=== PATIENT | female | born 1965 | race African-American/Black ===

== ENCOUNTER 2022-09-19 08:59 | Emergency (ER) | payer OTHER ==
[~2022-09-19] VITALS: Ht 152.4 cm; Wt 90.7 kg
== END 2022-09-19 18:46 | disposition home or self-care (01) ==
LOC: ER 08:59
DX: E11.65 Type 2 diabetes mellitus with hyperglycemia (principal); L89.899 Pressure ulcer of other site, unspecified stage

== ENCOUNTER 2022-12-20 21:22 | Emergency (ER) | payer OTHER ==
[~2022-12-20] VITALS: Ht 152.4 cm; Wt 80.7 kg
[2022-12-20] MEDS ORDERED: TRIJARDY XR 5-1 EACH PO (21:56)
[2022-12-20] MEDS ORDERED: LIPITOR20 MG PO (21:57)
[2022-12-20] MEDS ORDERED: LOSARTAN POTASS50 MG PO (21:57)
[2022-12-21] MEDS ORDERED: BACTRIM DS TAB1 EACH PO (00:07)
== END 2022-12-21 00:18 | disposition home or self-care (01) ==
LOC: ER 21:22
PROVIDERS: General Practice
DX: M79.671 Pain in right foot (principal); L97.519 Non-pressure chronic ulcer of other part of right foot with unspecified severity; I10 Essential (primary) hypertension; E11.9 Type 2 diabetes mellitus without complications; Z79.84 Long term (current) use of oral hypoglycemic drugs

== ENCOUNTER 2022-12-21 11:18 | Outpatient (CLI) | payer OTHER ==
[~2022-12-21 11:18] MED LIST: BACTRIM DS TAB1 EACH PO; LIPITOR20 MG PO; LOSARTAN POTASS50 MG PO; TRIJARDY XR 5-1 EACH PO
== END 2022-12-21 11:27 | disposition home or self-care (01) ==
LOC: RAD 11:18
PROVIDERS: ATTEND Specialist
DX: M86.8X7 Other osteomyelitis, ankle and foot (principal); E11.69 Type 2 diabetes mellitus with other specified complication

== ENCOUNTER 2022-12-28 13:55 | Inpatient (IN) | payer OTHER ==
[~2022-12-28] VITALS: Ht 152.4 cm; Wt 80.7 kg
[2022-12-28 16:12] LABS: PH,URINE 5.5 (5.0-8.0); URINE APPEARANCE Clear; URINE BILIRRUBIN Negative (NEGATIVE); URINE BLOOD Negative; URINE COLOR Yellow; URINE LEUKOCYTE Negative; URINE NITRATE Negative; URINE PROTEIN Trace (NEGATIVE)
[2022-12-28 16:13] LABS: URINE BACTERIA 431.5 uL (0.0-1933); URINE EPITHELIAL CELLS 8.2 uL (0.0-38.8); URINE RBC 4.6 uL (0.0-20.8); URINE WBC 28.3 uL (0.0-23.2)
[2022-12-28 16:15] LABS: HEMATOCRIT 32.6 % (36.0-45.00); HEMOGLOBIN 10.2 g/dL (12.0-15.00); MEAN CELL VOLUME 73.8 fL (80.00-100.00); MEAN CORPUSCULAR HEMOGLOBIN 23.1 pg (27.00-32.0); MEAN CORPUSCULAR HGB CONC 31.3 g/dl (32.0-36.0); PLATELET COUNT 452 K/uL (150-450); RED BLOOD COUNT 4.42 M/uL (4.00-6.00); RED CELL DISTRIBUTION WIDTH 15.6 % (11.5-14.5); URINE GLUCOSE >=1000 MG/DL (NEGATIVE)
[2022-12-28 16:19] LABS: ERYTHROCYTE SEDIMENTATION RATE 82 mm/hr
[2022-12-28 16:33] LABS: INR 1.11; PARTIAL THROMBOPLASTIN TIME 36.3 SECONDS (22.0-34.0); PROTHROMBIN TIME 11.6 SECONDS (9.0-11.5)
[2022-12-28 16:40] LABS: ALBUMIN 3.1 gm/dL (3.4-5.0); BILIRUBIN TOTAL 0.53 mg/dL (0.3-1.2); CALCIUM 9.5 mg/dL (8.5-10.1); CREATININE SERUM 1.37 mg/dL (0.55-1.02); GFR 39.88; GLOBULINA 5.3 G/DL (2.4-3.5); POTASSIUM 4.68 mEq/L (3.5-5.1); TOTAL PROTEIN 8.4 gm/dL (6.4-8.2)
[2022-12-28 18:44] LABS: ABG PH 7.471 (7.35-7.45); ABG PO2 85.5 mmHg (80-100); ABG pCO2 35.1 mmHg (35-45); BASE EXCESS 1.8 mmol/l; SaO2 97.2 %; Tco2 26.1 mmol/l
[2022-12-28 18:45] LABS: allen test SATISFACTORY; o2 21 %; puncture site RADIAL LEFT
[2022-12-30 08:13] LABS: CALCIUM 8.1 mg/dL (8.5-10.1); CREATININE SERUM 0.87 mg/dL (0.55-1.02); GFR 67.35; POTASSIUM 4.07 mEq/L (3.5-5.1); TSH 1.69 uIU/mL (0.358-3.74)
[2023-01-01 07:06] LABS: CALCIUM 8.1 mg/dL (8.5-10.1); CREATININE SERUM 0.8 mg/dL (0.55-1.02); GFR 74.2; MAGNESIUM 1.7 mg/dL (1.8-2.4); PHOSPHOROUS 3.1 mg/dL (2.5-4.9); POTASSIUM 4.08 mEq/L (3.5-5.1)
[2023-01-01 07:08] LABS: HEMATOCRIT 26.3 % (36.0-45.00); MEAN CELL VOLUME 72.2 fL (80.00-100.00); MEAN CORPUSCULAR HGB CONC 33.4 g/dl (32.0-36.0); PLATELET COUNT 389 K/uL (150-450); RED BLOOD COUNT 3.64 M/uL (4.00-6.00); RED CELL DISTRIBUTION WIDTH 15.6 % (11.5-14.5)
[2023-01-01 07:12] LABS: HEMOGLOBIN 8.8 g/dL (12.0-15.00); MEAN CORPUSCULAR HEMOGLOBIN 24.1 pg (27.00-32.0)
[2023-01-03 08:39] LABS: HEMATOCRIT 27.9 % (36.0-45.00); MEAN CELL VOLUME 72.8 fL (80.00-100.00); MEAN CORPUSCULAR HEMOGLOBIN 23.5 pg (27.00-32.0); MEAN CORPUSCULAR HGB CONC 32.3 g/dl (32.0-36.0); PLATELET COUNT 499 K/uL (150-450); RED BLOOD COUNT 3.83 M/uL (4.00-6.00); RED CELL DISTRIBUTION WIDTH 15.5 % (11.5-14.5)
[2023-01-03 08:46] LABS: ERYTHROCYTE SEDIMENTATION RATE > 130 mm/hr
[2023-01-03 09:33] LABS: ALBUMIN 2.1 gm/dL (3.4-5.0); BILIRUBIN TOTAL 0.73 mg/dL (0.3-1.2); CALCIUM 8.3 mg/dL (8.5-10.1); CREATININE SERUM 0.7 mg/dL (0.55-1.02); GFR 86.56; GLOBULINA 4.4 G/DL (2.4-3.5); POTASSIUM 4.01 mEq/L (3.5-5.1); TOTAL PROTEIN 6.5 gm/dL (6.4-8.2)
[2023-01-03 09:34] LABS: C-REACTIVE PROTEIN 23.2 MG/DL (0.00-0.29)
[2023-01-06 10:21] LABS: INR 1.23; PROTHROMBIN TIME 12.7 SECONDS (9.0-11.5)
[2023-01-07 14:22] LABS: ABG PH 7.377 (7.35-7.45); ABG PO2 65.9 mmHg (80-100); ABG pCO2 30.3 mmHg (35-45); BASE EXCESS -6.4 mmol/l; BICARBONATE 17.4 mmol/l (23-25); SaO2 91.8 %; Tco2 18.3 mmol/l; o2 44 %
[2023-01-07 14:23] LABS: allen test SATISFACTORY; puncture site RADIAL LEFT
[2023-01-07 15:29] LABS: HEMATOCRIT 25.2 % (36.0-45.00); MEAN CELL VOLUME 71.8 fL (80.00-100.00); MEAN CORPUSCULAR HEMOGLOBIN 24.2 pg (27.00-32.0); PLATELET COUNT 597 K/uL (150-450); RED BLOOD COUNT 3.51 M/uL (4.00-6.00); RED CELL DISTRIBUTION WIDTH 16.2 % (11.5-14.5)
[2023-01-07 15:30] LABS: HEMOGLOBIN 8.5 g/dL (12.0-15.00)
[2023-01-07 15:32] LABS: ALBUMIN 2.1 gm/dL (3.4-5.0); BILIRUBIN TOTAL 0.42 mg/dL (0.3-1.2); CALCIUM 8.1 mg/dL (8.5-10.1); CREATININE SERUM 0.65 mg/dL (0.55-1.02); GFR 94.29; GLOBULINA 4.5 G/DL (2.4-3.5); POTASSIUM 3.83 mEq/L (3.5-5.1); TOTAL PROTEIN 6.6 gm/dL (6.4-8.2)
[2023-01-08 07:14] LABS: MEAN CELL VOLUME 71.4 fL (80.00-100.00); PLATELET COUNT 594 K/uL (150-450); RED BLOOD COUNT 3.15 M/uL (4.00-6.00); RED CELL DISTRIBUTION WIDTH 16.4 % (11.5-14.5)
[2023-01-08 07:23] LABS: HEMATOCRIT 22.5 % (36.0-45.00); MEAN CORPUSCULAR HEMOGLOBIN 24.4 pg (27.00-32.0)
[2023-01-08 07:33] LABS: HEMOGLOBIN 7.7 g/dL (12.0-15.00)
[2023-01-08 08:05] LABS: BILIRUBIN TOTAL 0.32 mg/dL (0.3-1.2); CREATININE SERUM 0.65 mg/dL (0.55-1.02); GFR 94.29; GLOBULINA 4.1 G/DL (2.4-3.5); POTASSIUM 3.61 mEq/L (3.5-5.1); TOTAL PROTEIN 6.1 gm/dL (6.4-8.2)
[2023-01-09 12:50] LABS: FERRITIN 636.7 NG/ML (8-252)
[2023-01-09 16:56] LABS: ABG PO2 77.1 mmHg (80-100); ABG pCO2 42.6 mmHg (35-45); BICARBONATE 27.7 mmol/l (23-25); SaO2 95.8 %; allen test SATISFACTORY; o2 50 %; puncture site RADIAL LEFT
[2023-01-10 08:07] LABS: HEMATOCRIT 32.4 % (36.0-45.00); MEAN CELL VOLUME 74.2 fL (80.00-100.00); MEAN CORPUSCULAR HEMOGLOBIN 25.2 pg (27.00-32.0); MEAN CORPUSCULAR HGB CONC 33.9 g/dl (32.0-36.0); PLATELET COUNT 516 K/uL (150-450); RED BLOOD COUNT 4.36 M/uL (4.00-6.00); RED CELL DISTRIBUTION WIDTH 16.5 % (11.5-14.5)
[2023-01-12 06:50] LABS: HEMATOCRIT 32.7 % (36.0-45.00); HEMOGLOBIN 10.8 g/dL (12.0-15.00); MEAN CELL VOLUME 76.5 fL (80.00-100.00); MEAN CORPUSCULAR HEMOGLOBIN 25.3 pg (27.00-32.0); MEAN CORPUSCULAR HGB CONC 33.1 g/dl (32.0-36.0); PLATELET COUNT 381 K/uL (150-450); RED BLOOD COUNT 4.27 M/uL (4.00-6.00); RED CELL DISTRIBUTION WIDTH 16.3 % (11.5-14.5)
[2023-01-12 07:28] LABS: ALBUMIN 2.2 gm/dL (3.4-5.0); BILIRUBIN TOTAL 0.41 mg/dL (0.3-1.2); CALCIUM 8.8 mg/dL (8.5-10.1); CREATININE SERUM 0.49 mg/dL (0.55-1.02); GFR 130.64; POTASSIUM 3.92 mEq/L (3.5-5.1); TOTAL PROTEIN 6.2 gm/dL (6.4-8.2)
[2023-01-12 07:35] LABS: ERYTHROCYTE SEDIMENTATION RATE > 130 mm/hr
[2023-01-12 07:37] LABS: C-REACTIVE PROTEIN 8.85 MG/DL (0.00-0.29)
[2023-01-12 23:26] LABS: ob NEGATIVE (NEGATIVE)
[2023-01-15 07:51] LABS: HEMATOCRIT 29.1 % (36.0-45.00); HEMOGLOBIN 9.7 g/dL (12.0-15.00); MEAN CELL VOLUME 75.2 fL (80.00-100.00); MEAN CORPUSCULAR HEMOGLOBIN 25.1 pg (27.00-32.0); MEAN CORPUSCULAR HGB CONC 33.4 g/dl (32.0-36.0); PLATELET COUNT 280 K/uL (150-450); RED BLOOD COUNT 3.87 M/uL (4.00-6.00)
[2023-01-15 07:57] LABS: ERYTHROCYTE SEDIMENTATION RATE 117 mm/hr
[2023-01-15 08:15] LABS: ALBUMIN 2.3 gm/dL (3.4-5.0); BILIRUBIN TOTAL 0.4 mg/dL (0.3-1.2); CALCIUM 8.5 mg/dL (8.5-10.1); CREATININE SERUM 0.62 mg/dL (0.55-1.02); GFR 99.57; GLOBULINA 3.7 G/DL (2.4-3.5); POTASSIUM 4.13 mEq/L (3.5-5.1)
[2023-01-15 08:16] LABS: C-REACTIVE PROTEIN 6.81 MG/DL (0.00-0.29)
[2023-01-19 06:55] LABS: HEMATOCRIT 29.1 % (36.0-45.00); HEMOGLOBIN 9.4 g/dL (12.0-15.00); MEAN CELL VOLUME 76.5 fL (80.00-100.00); MEAN CORPUSCULAR HEMOGLOBIN 24.8 pg (27.00-32.0); MEAN CORPUSCULAR HGB CONC 32.5 g/dl (32.0-36.0); PLATELET COUNT 204 K/uL (150-450); RED CELL DISTRIBUTION WIDTH 16.5 % (11.5-14.5)
[2023-01-19 07:17] LABS: ALBUMIN 2.4 gm/dL (3.4-5.0); BILIRUBIN TOTAL 0.45 mg/dL (0.3-1.2); CALCIUM 8.5 mg/dL (8.5-10.1); CREATININE SERUM 0.58 mg/dL (0.55-1.02); GFR 107.54; GLOBULINA 3.6 G/DL (2.4-3.5); POTASSIUM 4.17 mEq/L (3.5-5.1)
[2023-01-19 07:37] LABS: ERYTHROCYTE SEDIMENTATION RATE > 130 mm/hr
[2023-01-23 08:09] LABS: HEMATOCRIT 29.2 % (36.0-45.00); HEMOGLOBIN 9.6 g/dL (12.0-15.00); MEAN CELL VOLUME 76.6 fL (80.00-100.00); MEAN CORPUSCULAR HEMOGLOBIN 25.1 pg (27.00-32.0); MEAN CORPUSCULAR HGB CONC 32.8 g/dl (32.0-36.0); PLATELET COUNT 209 K/uL (150-450); RED BLOOD COUNT 3.82 M/uL (4.00-6.00); RED CELL DISTRIBUTION WIDTH 16.8 % (11.5-14.5)
[2023-01-23 08:43] LABS: CALCIUM 8.7 mg/dL (8.5-10.1); CREATININE SERUM 0.74 mg/dL (0.55-1.02); GFR 81.18; PHOSPHOROUS 3.5 mg/dL (2.5-4.9); POTASSIUM 4.39 mEq/L (3.5-5.1)
== END 2023-01-24 12:23 | disposition designated cancer center or children's hospital (05) | DRG 854 ==
LOC: ER 13:55 → MEDJ 19:19 → MEDI 19:19 → MEDJ 01-03 15:04
PROVIDERS: General Practice; Internal Medicine; Internal Medicine Endocrinology, Diabetes & Metabolism; Internal Medicine Geriatric Medicine; Internal Medicine Hematology & Oncology; Specialist; ADMIT Internal Medicine; ATTEND Internal Medicine
PROC: BQ3LZZZ Magnetic Resonance Imaging (MRI) of Right Foot (ICD-10-PCS; 2022-12-29)
PROC: 8E0ZXY6 Isolation (ICD-10-PCS; 2022-12-30)
PROC: B24BYZZ Ultrasonography of Heart with Aorta using Other Contrast (ICD-10-PCS; 2023-01-02)
PROC: B315ZZZ Fluoroscopy of Bilateral Common Carotid Arteries (ICD-10-PCS; 2023-01-02)
PROC: 4A02XM4 Measurement of Cardiac Total Activity, External Approach (ICD-10-PCS; 2023-01-03)
PROC: 3E073KZ Introduction of Other Diagnostic Substance into Coronary Artery, Percutaneous Approach (ICD-10-PCS; 2023-01-03)
PROC: 0Y6V0Z0 Detachment at Right 4th Toe, Complete, Open Approach (ICD-10-PCS; principal; 2023-01-06 09:00)
PROC: 4A12X4Z Monitoring of Cardiac Electrical Activity, External Approach (ICD-10-PCS; 2023-01-07)
PROC: BW24YZZ Computerized Tomography (CT Scan) of Chest and Abdomen using Other Contrast (ICD-10-PCS; 2023-01-07)
PROC: BW24YZZ Computerized Tomography (CT Scan) of Chest and Abdomen using Other Contrast (ICD-10-PCS; 2023-01-07)
PROC: 02HV33Z Insertion of Infusion Device into Superior Vena Cava, Percutaneous Approach (ICD-10-PCS; 2023-01-09)
PROC: 30243N1 Transfusion of Nonautologous Red Blood Cells into Central Vein, Percutaneous Approach (ICD-10-PCS; 2023-01-10)
DX: A41.9 Sepsis, unspecified organism (principal); E11.52 Type 2 diabetes mellitus with diabetic peripheral angiopathy with gangrene; N17.9 Acute kidney failure, unspecified; I96 Gangrene, not elsewhere classified; M86.9 Osteomyelitis, unspecified; E11.621 Type 2 diabetes mellitus with foot ulcer; Z79.4 Long term (current) use of insulin; L97.519 Non-pressure chronic ulcer of other part of right foot with unspecified severity; I99.8 Other disorder of circulatory system; D64.9 Anemia, unspecified; E11.22 Type 2 diabetes mellitus with diabetic chronic kidney disease; I12.9 Hypertensive chronic kidney disease with stage 1 through stage 4 chronic kidney disease, or unspecified chronic kidney disease; I65.22 Occlusion and stenosis of left carotid artery; N18.30 Chronic kidney disease, stage 3 unspecified; D51.3 Other dietary vitamin B12 deficiency anemia; I11.0 Hypertensive heart disease with heart failure; I50.9 Heart failure, unspecified
CPT/HCPCS: 71275; 73725

== ENCOUNTER 2023-03-26 09:35 | Outpatient (CLI) | payer OTHER | END 2023-03-26 09:46 | disposition home or self-care (01) | LOC: MAMO-SONO 09:35 | PROVIDERS: ATTEND Internal Medicine | DX: Z12.31 Encounter for screening mammogram for malignant neoplasm of breast (principal); Z12.39 Encounter for other screening for malignant neoplasm of breast ==

== ENCOUNTER 2023-06-11 11:43 | Outpatient (CLI) | payer OTHER | END 2023-06-11 11:48 | disposition home or self-care (01) | LOC: RAD 11:43 | PROVIDERS: ATTEND Internal Medicine | DX: R07.89 Other chest pain (principal); M25.511 Pain in right shoulder ==

== ENCOUNTER 2024-11-04 07:06 | Outpatient (CLI) | payer OTHER | END 2024-11-04 07:07 | disposition home or self-care (01) | LOC: NUCLEAR 07:06 | PROVIDERS: ATTEND Internal Medicine | DX: I20.9 Angina pectoris, unspecified (principal) ==

== ENCOUNTER 2025-03-23 10:00 | Inpatient (IN) | payer OTHER ==
[~2025-03-23] VITALS: Ht 154.9 cm; Wt 81.6 kg
--- NOTE | 2025-03-23 12:22 | NUR ---
PACIENTE FEMINA, C/C ABSESO EN PIE DERECHO, GLUCOSA 472, SE UBICA EN OBSERVACION PARA SER EVALUADA.
[2025-03-23] MEDS ORDERED: VANCOMYCIN HCL 1,000 MG VIAL IV ONE ×2 (12:45→19:00)
[2025-03-23] MEDS ORDERED: MORPHINE SULFATE 2 MG/ML SYRINGE IV ONE (12:45)
[2025-03-23] MEDS ORDERED: 0.9 % SODIUM CHLORIDE 1,000 ML IV SCH ×3 (12:45→20:30)
[2025-03-23] MEDS ORDERED: PIPERACILLIN/TAZOBACTAM SODIUM 3.375 GM in 0.9 % SODIUM CHLORIDE 50 ML IV ONE (12:45)
[2025-03-23] MEDS ORDERED: INSULIN REGULAR, HUMAN 1,000 UNIT/10 ML UNITS IV ONE (12:45)
[2025-03-23] MEDS ORDERED: FAMOtidine 10 MG/ML (4ML VIAL) IV PUSH ONE (12:45)
[2025-03-23] MEDS ORDERED: VANCOMYCIN HCL 1,000 MG VIAL ONE (13:48)
[2025-03-23] MEDS ORDERED: PIPERACILLIN/TAZOBACTAM SODIUM 3.375 GM VIAL IV ONE (13:49)
[2025-03-23] MEDS ORDERED: FAMOTIDINE/PF 20 MG/2 ML VIAL ONE ×2 (13:50→19:50)
[2025-03-23] MEDS ORDERED: WATER FOR INJ.,BACTERIOSTATIC 30 ML VIAL IJ ONE (14:22)
[2025-03-23 17:19] LABS: BASO % 0.3 % (0.1-1.2); EOS # 0.05 (0.04-0.54); EOS % 0.3 % (0.7-7.0); LYMPH # 2.17 (1.18-3.74); LYMPH % 11.7 % (19.3-53.1); MEAN PLATELET VOLUME 9.90 fl (9.4-12.4); MONO # 1.32 (0.24-0.82); MONO % 7.1 % (4.7-12.5); NEUT # 14.90 (1.56-6.13); NEUT % 80.0 % (34.0-71.1); RED CELL DISTRIBUTION WIDTH 14.2 % (11.6-14.4)
[2025-03-23 17:45] LABS: ERYTHROCYTE SEDIMENTATION RATE > 130 mm/hr (0-30)
[2025-03-23 18:09] LABS: ALT/SGPT 17.0 U/L (12-78); AST/SGOT 11.0 U/L (15-37); BILIRUBIN TOTAL 0.68 mg/dL (0.3-1.2); BUN CREA RATIO 14.0 (7.0-25.0); CREATININE SERUM 1.32 mg/dL (0.55-1.02); GFR 41.33; GLOBULINA 4.7 G/DL (2.4-3.5)
[2025-03-23 18:16] LABS: GLUCOSE FASTING 397.0 mg/dL (65-100); OSMOLALITY SERUM 281.0 MOSM/KG (275-295)
--- NOTE | 2025-03-23 18:25 | NUR ---
SE EDUCA ACERCA DE TX ORDENADO, SE CANALIZA Y COLECTAN MUESTRAS DE LABORATORIO MEDIANTE MEDIDAS ASEPTICAS. SE ADMINSITRAN MEDICAMENTOS EDILSON ORDEN MEDICA.
[2025-03-23] MEDS ORDERED: KETOROLAC TROMETHAMINE 15 MG VIAL IU ONE (19:00)
[2025-03-23] MEDS ORDERED: FAMOTIDINE/PF 20 MG in 0.9 % SODIUM CHLORIDE 8 ML IV PUSH ONE (19:00)
[2025-03-23] MEDS ORDERED: DEXTROSE 50 % IN WATER 0.5 G/ML DISP.SYRIN IV PRN (19:00)
[2025-03-23] MEDS ORDERED: INSULIN LISPRO 1,000 UNIT/10 ML UNITS SUBCUTANEO PRN (19:00)
[2025-03-23] MEDS ORDERED: KETOROLAC TROMETHAMINE 30 MG VIAL ONE (19:49)
[2025-03-23] MEDS ORDERED: PIPERACILLIN/TAZOBACTAM SODIUM 2.25 GM in DEXTROSE 5 % IN WATER 50 ML IV SCH (20:28)
[2025-03-23] MEDS ORDERED: ONDANSETRON HCL 4 MG in 0.9 % SODIUM CHLORIDE 50 ML IV PRN (20:30)
[2025-03-23] MEDS ORDERED: ACETAMINOPHEN 500 MG GEL..CAP PO PRN (20:30)
[2025-03-24] MEDS ORDERED: PIPERACILLIN/TAZOBACTAM SODIUM 3.375 GM VIAL IV ONE (00:36)
[2025-03-24 01:49] LABS: INR 1.09
[2025-03-24 06:33] LABS: URINE APPEARANCE Cloudy; URINE BILIRRUBIN Negative (NEGATIVE); URINE BLOOD Negative; URINE COLOR Yellow; URINE KETONE Trace (NEGATIVE); URINE LEUKOCYTE Moderate; URINE NITRATE Negative; URINE UROBILINOGEN 0.2 E.U./dl
[2025-03-24 06:37] LABS: URINE BACTERIA 3600.0 uL (0.0-1933); URINE EPITHELIAL CELLS 49.5 uL (0.0-38.8); URINE RBC 21.6 uL (0.0-20.8); URINE WBC 187.0 uL (0.0-23.2)
[2025-03-24 06:44] LABS: URINE CAST 0.84 uL (0.0-1.40); URINE GLUCOSE 500 MG/DL (NEGATIVE); URINE PROTEIN 100 (NEGATIVE)
[2025-03-24 06:53] LABS: URINE CRYSTALS FEW /HPF; URINE YEAST FEW /hpf
[2025-03-24] MEDS ORDERED: LOSARTAN POTASSIUM 50 MG TABLET PO SCH (09:00)
[2025-03-24] MEDS ORDERED: ATORVASTATIN CALCIUM 20 MG TABLET PO SCH (09:00)
[2025-03-24] MEDS ORDERED: FAMOTIDINE/PF 20 MG in 0.9 % SODIUM CHLORIDE 8 ML IV PUSH SCH (09:00)
[2025-03-24] MEDS ORDERED: VANCOMYCIN HCL 1,000 MG VIAL IV SCH (09:00)
[2025-03-24 09:32] VITALS: BP 136/72; O2SAT 99
[2025-03-24] MEDS ORDERED: CLINDAMYCIN PHOSPHATE 150 MG/ML (900mg) IV STA (14:00)
[2025-03-24] MEDS ORDERED: LIDOCAINE HCL 1% 10ML VIAL PERCUT SCH (16:15)
[2025-03-24] MEDS ORDERED: LACTOBACILLUS ACIDOPHILUS 1 CAP CAP PO SCH (17:00)
[2025-03-24 20:14] VITALS: BP 160/79; O2SAT 100
[2025-03-24] MEDS ORDERED: LINEZOLID IN DEXTROSE 5% 300 ML IV SCH (21:00)
[2025-03-24] MEDS ORDERED: CLINDAMYCIN PHOSPHATE 150 MG/ML (900mg) IV SCH (21:00)
[2025-03-25 03:21] VITALS: BP 151/71; O2SAT 97
[2025-03-25] MEDS ORDERED: CHLORHEXIDINE GLUCONATE 120 ML BOTTLE TOP SCH (09:00)
[2025-03-25 09:09] LABS: ALT/SGPT 16.0 U/L (12-78); AST/SGOT 12.0 U/L (15-37); BILIRUBIN TOTAL 0.52 mg/dL (0.3-1.2); BUN CREA RATIO 20.0 (7.0-25.0); CREATININE SERUM 1.39 mg/dL (0.55-1.02); GFR 38.94; GLOBULINA 3.9 G/DL (2.4-3.5); GLUCOSE FASTING 270.0 mg/dL (65-100); OSMOLALITY SERUM 289.0 MOSM/KG (275-295)
[2025-03-25 09:36] VITALS: BP 155/70; O2SAT 99
[2025-03-25 18:16] VITALS: BP 165/82
[2025-03-26 03:17] VITALS: BP 156/80; O2SAT 99
[2025-03-26] MEDS ORDERED: INSULIN LISPRO 1,000 UNIT/10 ML UNITS SUBCUTANEO SCH (08:00)
[2025-03-26] MEDS ORDERED: INSULIN GLARGINE,HUM.REC.ANLOG 1,000 UNITS/10 ML UNITS SUBCUTANEO SCH (09:00)
[2025-03-26] MEDS ORDERED: SODIUM HYPOCHLORITE 1OZ TOP SCH (09:00)
[2025-03-26 09:43] VITALS: BP 172/78; O2SAT 99
[2025-03-26 09:47] LABS: BASO % 0.4 % (0.1-1.2); EOS # 0.19 (0.04-0.54); EOS % 2.8 % (0.7-7.0); LYMPH # 1.90 (1.18-3.74); LYMPH % 27.6 % (19.3-53.1); MEAN PLATELET VOLUME 11.40 fl (9.4-12.4); MONO # 0.55 (0.24-0.82); MONO % 8.0 % (4.7-12.5); NEUT # 4.13 (1.56-6.13); NEUT % 60.0 % (34.0-71.1); RED CELL DISTRIBUTION WIDTH 14.0 % (11.6-14.4)
[2025-03-26 10:22] LABS: ALT/SGPT 16.0 U/L (12-78); AST/SGOT 15.0 U/L (15-37); BILIRUBIN TOTAL 0.35 mg/dL (0.3-1.2); BUN CREA RATIO 20.0 (7.0-25.0); CREATININE SERUM 1.02 mg/dL (0.55-1.02); GFR 55.66; GLOBULINA 4.0 G/DL (2.4-3.5); GLUCOSE FASTING 150.0 mg/dL (65-100); OSMOLALITY SERUM 281.0 MOSM/KG (275-295)
[2025-03-26] MEDS ORDERED: LINEZOLID 600 MG TABLET PO SCH (21:00)
[2025-03-26 22:06] VITALS: BP 168/99
[2025-03-27 03:13] VITALS: BP 160/83; O2SAT 100
[2025-03-27] MEDS ORDERED: INSULIN GLARGINE,HUM.REC.ANLOG 1,000 UNITS/10 ML UNITS SUBCUTANEO SCH (09:00)
[2025-03-27 10:19] VITALS: BP 147/74; O2SAT 98
[2025-03-27 21:37] VITALS: BP 170/85
[2025-03-28 01:07] VITALS: BP 192/83; O2SAT 97
[2025-03-28 07:21] LABS: BASO % 0.7 % (0.1-1.2); EOS # 0.35 (0.04-0.54); EOS % 3.9 % (0.7-7.0); LYMPH # 2.54 (1.18-3.74); LYMPH % 28.1 % (19.3-53.1); MEAN PLATELET VOLUME 10.60 fl (9.4-12.4); MONO # 0.61 (0.24-0.82); MONO % 6.8 % (4.7-12.5); NEUT # 5.30 (1.56-6.13); NEUT % 58.6 % (34.0-71.1); RED CELL DISTRIBUTION WIDTH 14.3 % (11.6-14.4)
[2025-03-28 08:20] LABS: ALT/SGPT 19.0 U/L (12-78); AST/SGOT 14.0 U/L (15-37); BILIRUBIN TOTAL 0.54 mg/dL (0.3-1.2); BUN CREA RATIO 19.0 (7.0-25.0); CREATININE SERUM 1.08 mg/dL (0.55-1.02); GFR 52.11; GLOBULINA 4.0 G/DL (2.4-3.5); GLUCOSE FASTING 163.0 mg/dL (65-100); OSMOLALITY SERUM 279.0 MOSM/KG (275-295)
[2025-03-28 10:25] VITALS: BP 155/87; O2SAT 97
[2025-03-28] MEDS ORDERED: Cyanocobalamin/Mecobalamin 1 TAB.SL SL SCH (13:14)
[2025-03-28] MEDS ORDERED: SOD FERRIC GLUC COMPLX/SUCROSE 62.5 MG in 0.9 % SODIUM CHLORIDE 50 ML IV SCH (13:14)
[2025-03-28 17:54] VITALS: BP 160/85; O2SAT 100
[2025-03-29 02:32] VITALS: BP 188/98; O2SAT 99
[2025-03-29] MEDS ORDERED: AMLODIPINE BESYLATE 5 MG TABLET PO SCH (09:00)
[2025-03-29] MEDS ORDERED: LOSARTAN POTASSIUM 50 MG TABLET PO SCH (09:00)
[2025-03-29 10:09] VITALS: BP 158/83; O2SAT 97
[2025-03-29 18:30] VITALS: BP 160/72; O2SAT 100
[2025-03-30 01:13] VITALS: BP 182/80; O2SAT 99
[2025-03-30 06:56] LABS: ERYTHROCYTE SEDIMENTATION RATE 102 mm/hr (0-30)
[2025-03-30 06:58] LABS: BUN CREA RATIO 20.0 (7.0-25.0); CREATININE SERUM 1.08 mg/dL (0.55-1.02); GFR 52.11; GLUCOSE FASTING 134.0 mg/dL (65-100); OSMOLALITY SERUM 281.0 MOSM/KG (275-295)
[2025-03-30 08:51] LABS: BASO % 0.6 % (0.1-1.2); EOS # 0.32 (0.04-0.54); EOS % 3.9 % (0.7-7.0); LYMPH # 2.43 (1.18-3.74); LYMPH % 29.9 % (19.3-53.1); MEAN PLATELET VOLUME 10.40 fl (9.4-12.4); MONO # 0.70 (0.24-0.82); MONO % 8.6 % (4.7-12.5); NEUT # 4.47 (1.56-6.13); NEUT % 55.0 % (34.0-71.1); RED CELL DISTRIBUTION WIDTH 14.6 % (11.6-14.4)
[2025-03-30 08:57] VITALS: BP 156/75; O2SAT 98
[2025-03-30 21:37] VITALS: BP 158/69
[2025-03-31 00:56] VITALS: BP 160/73; O2SAT 98
[2025-03-31] MEDS ORDERED: FOLIC ACID 1 MG TABLET PO SCH (09:00)
[2025-03-31 10:42] VITALS: BP 166/89; O2SAT 99
[2025-03-31] MEDS ORDERED: PIPERACILLIN/TAZOBACTAM SODIUM 2.25 GM VIAL IV SCH (12:00)
[2025-03-31 19:12] VITALS: BP 173/83
[2025-04-01 01:54] VITALS: BP 160/78; O2SAT 98
[2025-04-01 09:18] VITALS: BP 157/79; O2SAT 98
[2025-04-01 13:50] LABS: BASO % 0.2 % (0.1-1.2); EOS # 0.28 (0.04-0.54); EOS % 3.3 % (0.7-7.0); LYMPH # 2.00 (1.18-3.74); LYMPH % 23.9 % (19.3-53.1); MEAN PLATELET VOLUME 9.80 fl (9.4-12.4); MONO # 0.73 (0.24-0.82); MONO % 8.7 % (4.7-12.5); NEUT # 5.19 (1.56-6.13); NEUT % 62.1 % (34.0-71.1); RED CELL DISTRIBUTION WIDTH 15.3 % (11.6-14.4)
[2025-04-01] MEDS ORDERED: AMLODIPINE BESYL5 MG PO (14:43)
[2025-04-01] MEDS ORDERED: LIPITOR20 MG PO (14:43)
[2025-04-01] MEDS ORDERED: INTESTINEX680 M1 PO (14:44)
[2025-04-01] MEDS ORDERED: COZAAR50 MG PO (14:44)
[2025-04-01] MEDS ORDERED: INSULIN LI100 UNIT/1 SUBCUTANEO (14:45)
[2025-04-01] MEDS ORDERED: Lantus 1000 UNITS/10 SUBCUTANEO (14:46)
== END 2025-04-01 17:39 | disposition home or self-care (01) | DRG 592 ==
LOC: ER 10:00 → MEDJ 22:09
PROVIDERS: General Practice; Internal Medicine; Internal Medicine Geriatric Medicine; ADMIT Internal Medicine; ATTEND Internal Medicine
PROC: B54CZZZ Ultrasonography of Left Lower Extremity Veins (ICD-10-PCS; 2025-03-23)
PROC: BQ2SZZZ Computerized Tomography (CT Scan) of Left Lower Extremity (ICD-10-PCS; 2025-03-23)
PROC: 0H9LXZZ Drainage of Left Lower Leg Skin, External Approach (ICD-10-PCS; principal; 2025-03-24)
PROC: 02HV33Z Insertion of Infusion Device into Superior Vena Cava, Percutaneous Approach (ICD-10-PCS; 2025-03-25)
PROC: 0HBLXZZ Excision of Left Lower Leg Skin, External Approach (ICD-10-PCS; 2025-03-26)
PROC: B24BYZZ Ultrasonography of Heart with Aorta using Other Contrast (ICD-10-PCS; 2025-03-26)
PROC: 30243N1 Transfusion of Nonautologous Red Blood Cells into Central Vein, Percutaneous Approach (ICD-10-PCS; 2025-03-30)
DX: L97.929 Non-pressure chronic ulcer of unspecified part of left lower leg with unspecified severity (principal); A41.9 Sepsis, unspecified organism; L02.416 Cutaneous abscess of left lower limb; N17.9 Acute kidney failure, unspecified; D72.829 Elevated white blood cell count, unspecified; Z79.4 Long term (current) use of insulin; I10 Essential (primary) hypertension; E11.40 Type 2 diabetes mellitus with diabetic neuropathy, unspecified; D64.9 Anemia, unspecified